=== PATIENT | female | born 1970 | race Caucasian/White ===

== ENCOUNTER 2018-01-16 07:22 | Emergency (ER) | payer MEDICAID ==
[~2018-01-16] VITALS: Ht 147.3 cm; Wt 66.0 kg
[~2018-01-16 07:22] MED LIST: ATI0.5T PO; BENZ-16 PO; DIPH25CA83 PO; HYDR50CA PO; IBUP-1984 PO; IBUP-1986 PO
[2018-01-16] MEDS ORDERED: SULF1TAB49 PO (07:45)
[2018-01-16 07:56] VITALS: BP 115/80
== END 2018-01-16 07:58 | disposition home or self-care (01) ==
LOC: ER 07:23
DX: L08.9 Local infection of the skin and subcutaneous tissue, unspecified (principal); F17.200 Nicotine dependence, unspecified, uncomplicated; Z90.710 Acquired absence of both cervix and uterus; Z90.49 Acquired absence of other specified parts of digestive tract; Z59.0 Homelessness; Z56.0 Unemployment, unspecified; Z88.0 Allergy status to penicillin; Z88.5 Allergy status to narcotic agent; Z79.899 Other long term (current) drug therapy
CPT/HCPCS: 99284

== ENCOUNTER 2018-01-30 08:50 | Emergency (ER) | payer MEDICAID ==
[~2018-01-30] VITALS: Ht 147.3 cm; Wt 86.3 kg
[2018-01-30 08:57] VITALS: BP 139/112
[2018-01-30] MEDS ORDERED: MUPI22OI30 TOP (09:17)
== END 2018-01-30 09:22 | disposition home or self-care (01) ==
LOC: ER 08:51
DX: M79.675 Pain in left toe(s) (principal); M79.674 Pain in right toe(s); M79.645 Pain in left finger(s); M79.644 Pain in right finger(s); Z87.11 Personal history of peptic ulcer disease; Z90.49 Acquired absence of other specified parts of digestive tract; Z90.710 Acquired absence of both cervix and uterus; Z98.890 Other specified postprocedural states; Z59.0 Homelessness; Z56.0 Unemployment, unspecified; Z88.0 Allergy status to penicillin; Z88.1 Allergy status to other antibiotic agents; Z88.6 Allergy status to analgesic agent; Z88.5 Allergy status to narcotic agent
CPT/HCPCS: 99283

== ENCOUNTER 2018-04-27 16:15 | Emergency (ER) | payer MEDICAID ==
[~2018-04-27] VITALS: Ht 157.5 cm; Wt 55.0 kg
[2018-04-27 16:25] VITALS: BP 115/73
== END 2018-04-27 19:33 | disposition left against medical advice (07) ==
LOC: ER 16:16
DX: J34.89 Other specified disorders of nose and nasal sinuses (principal); Z53.21 Procedure and treatment not carried out due to patient leaving prior to being seen by health care provider